=== PATIENT | female | born 2000 | race Caucasian/White ===

== ENCOUNTER 2020-06-19 06:07 | Outpatient (CLI) | payer OTHER | END 2020-06-19 08:25 | disposition home or self-care (01) | LOC: GENOP 06:07 | DX: O99.891 Other specified diseases and conditions complicating pregnancy (principal); R10.9 Unspecified abdominal pain; M54.9 Dorsalgia, unspecified; Z3A.36 36 weeks gestation of pregnancy | CPT/HCPCS: G0463 ==

== ENCOUNTER 2020-07-07 16:29 | Inpatient (IN) | payer OTHER ==
[~2020-07-07] VITALS: Ht 162.6 cm; Wt 83.5 kg
[2020-07-07 16:55] LABS: HEMOGLOBIN 12.2 gm/dl (12.3-15.3); RED BLOOD COUNT 3.8 M/UL (4.00-5.10); WHITE BLOOD COUNT 11.6 K/UL (4.5-11.0)
[2020-07-07] MEDS ORDERED: WELLBUTRIN SR150 M1 PO (17:14)
[2020-07-07] MEDS ORDERED: PRENATAL VITAM1 EAC3 PO (17:15)
[2020-07-09 01:55] LABS: HEMOGLOBIN 11.6 gm/dl (12.3-15.3)
[2020-07-09] MEDS ORDERED: IBUPROFEN600 MG PO (13:21)
[2020-07-09] MEDS ORDERED: HYDROCODON-ACE1 EAC4 PO (13:21)
[2020-07-09] MEDS ORDERED: DOCUSATE SODIU100 MG PO (13:21)
== END 2020-07-10 16:27 | disposition home or self-care (01) | DRG 807 ==
LOC: GENOP 16:29 → OB 16:42
PROVIDERS: Obstetrics & Gynecology; ADMIT Obstetrics & Gynecology
PROC: 0U7C7ZZ Dilation of Cervix, Via Natural or Artificial Opening (ICD-10-PCS; 2020-07-07)
PROC: 10E0XZZ Delivery of Products of Conception, External Approach (ICD-10-PCS; principal; 2020-07-08)
PROC: 10907ZC Drainage of Amniotic Fluid, Therapeutic from Products of Conception, Via Natural or Artificial Opening (ICD-10-PCS; 2020-07-08)
PROC: 3E033VJ Introduction of Other Hormone into Peripheral Vein, Percutaneous Approach (ICD-10-PCS; 2020-07-08)
PROC: 0HQ9XZZ Repair Perineum Skin, External Approach (ICD-10-PCS; 2020-07-08)
PROC: 0UQMXZZ Repair Vulva, External Approach (ICD-10-PCS; 2020-07-08)
PROC: 3E0234Z Introduction of Serum, Toxoid and Vaccine into Muscle, Percutaneous Approach (ICD-10-PCS; 2020-07-09)
DX: O69.81X0 Labor and delivery complicated by cord around neck, without compression, not applicable or unspecified (principal); Z37.0 Single live birth; Z3A.39 39 weeks gestation of pregnancy; Z20.822 Contact with and (suspected) exposure to COVID-19; O70.0 First degree perineal laceration during delivery; O99.344 Other mental disorders complicating childbirth; F32.9 Major depressive disorder, single episode, unspecified; O99.284 Endocrine, nutritional and metabolic diseases complicating childbirth; E05.90 Thyrotoxicosis, unspecified without thyrotoxic crisis or storm; O75.89 Other specified complications of labor and delivery; K82.9 Disease of gallbladder, unspecified; Z23 Encounter for immunization
CPT/HCPCS: 36415; 36600; 51702; 81001; 82800; 85014; 85018; 85025; 90471; 90715; J0595; J2210; J2405; J2590; J7120

== ENCOUNTER 2020-07-13 20:00 | Emergency (ER) | payer OTHER ==
[~2020-07-13 20:00] MED LIST: DOCUSATE SODIU100 MG PO; HYDROCODON-ACE1 EAC4 PO; IBUPROFEN600 MG PO; PRENATAL VITAM1 EAC3 PO; WELLBUTRIN SR150 M1 PO
[2020-07-13 21:16] LABS: HEMOGLOBIN 13.3 gm/dl (12.3-15.3); RED BLOOD COUNT 4.1 M/UL (4.00-5.10)
[2020-07-13 21:48] LABS: BUN/CREATININE RATIO 17 (0-10)
[2020-07-14] MEDS ORDERED: MACROBID 100 M100 MG PO (01:35)
== END 2020-07-14 02:24 | disposition home or self-care (01) ==
LOC: ER1 20:00
PROVIDERS: Physician Assistant
DX: O90.89 Other complications of the puerperium, not elsewhere classified (principal); R03.0 Elevated blood-pressure reading, without diagnosis of hypertension; O86.20 Urinary tract infection following delivery, unspecified; Z90.49 Acquired absence of other specified parts of digestive tract; Z79.899 Other long term (current) drug therapy; Z86.69 Personal history of other diseases of the nervous system and sense organs
CPT/HCPCS: 36415; 71045; 80053; 81001; 82550; 82553; 83874; 84484; 85025; 93005; 99285

== ENCOUNTER 2021-12-18 13:08 | Emergency (ER) | payer OTHER ==
[~2021-12-18 13:08] MED LIST changes: +MACROBID 100 M100 MG PO
== END 2021-12-18 16:15 | disposition home or self-care (01) ==
LOC: ER1 13:08
DX: Z32.02 Encounter for pregnancy test, result negative (principal); F17.210 Nicotine dependence, cigarettes, uncomplicated
CPT/HCPCS: 84703; 99282; J1885